=== PATIENT | male | born 1980 | race Caucasian/White ===

== ENCOUNTER 2020-08-21 20:45 | Emergency (ER) | payer BC ==
[~2020-08-21] VITALS: Ht 172.7 cm; Wt 94.8 kg
--- NOTE | 2020-08-21 20:47 | NUR ---
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 PT HAS HX ASTHMA, ATTEMPTED TO USE ALBUTEROL AT HOME AND REC'D BREATHING TREATMENT EN ROUTE, NO RELIEF. O2 SAT 87% ROOM AIR. PT STATES HE REC'D SECOND COVID VACCINE YESTERDAY, DENIES FEVER. PT AAOX4. BILATERAL WHEEZING NOTED. 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
--- NOTE | 2020-08-21 20:50 | NUR ---
RT AT BEDSIDE
--- NOTE | 2020-08-21 20:50 | NUR ---
AT BEDSIDE FOR EVAL
[2020-08-21] MEDS ORDERED: IPRATROPIUM NEB FS 0.5 MG/2.5 ML AMPUL.NEB ONE (20:52)
[2020-08-21] MEDS ORDERED: ALBUTEROL FS 2.5 MG/3 ML VIAL.NEB ONE ×2 (20:52→22:09)
--- NOTE | 2020-08-21 20:59 | NUR ---
RADIOLOGY AT BEDSIDE FOR CXR
[2020-08-21] MEDS ORDERED: IPRATROPIUM NEB FS 0.5 MG/2.5 ML AMPUL.NEB NEB ONE (21:00)
[2020-08-21] MEDS ORDERED: methylPREDNISolone SOD SUCC 125 MG/2ML VIAL IV ONE (21:00)
[2020-08-21] MEDS ORDERED: IV NS 0.9% 1,000 ML IV ONE (21:00)
[2020-08-21] MEDS ORDERED: methylPREDNISolone SOD SUCC 125 MG/2ML VIAL ONE (21:00)
[2020-08-21] MEDS ORDERED: ALBUTEROL FS 2.5 MG/3 ML VIAL.NEB NEB ONE (21:00)
[2020-08-21] MEDS ORDERED: Magnesium 1GM/D5W 100ML PREMIX 200 ML IV ONE ×2 (21:00→21:01)
[2020-08-21] MEDS ORDERED: ALBUTEROL FS 2.5 MG/3 ML VIAL.NEB CONTNEB ONE (22:30)
[2020-08-21] MEDS ORDERED: PRED20TA PO (22:56)
--- NOTE | 2020-08-21 23:30 | NUR ---
DR. VIGIL AT BEDSIDE REGARDING PLAN OF CARE. PT OFFERED ADMISSION D/T O2 SAT 93% ROOM AIR, PT REFUSED. PT MEDICALLY CLEARED FOR DISCHARGE AT THIS TIME
--- NOTE | 2020-08-21 23:43 | NUR ---
Patient discharged to home in stable condition. Written and verbal after care instructions given. Patient verbalizes understanding of instruction.IV removed. Catheter intact and site benign. Pressure and 4x4 applied to site. No bleeding noted.Pt ambulatory with a steady gait
[2020-08-21 23:44] VITALS: BP 156/88
== END 2020-08-21 23:44 | disposition home or self-care (01) ==
LOC: ER 20:45
DX: J45.901 Unspecified asthma with (acute) exacerbation (principal); R00.0 Tachycardia, unspecified; F17.210 Nicotine dependence, cigarettes, uncomplicated; Z60.2 Problems related to living alone
CPT/HCPCS: 71045; 94644; 94645; 96365; 96375; 99285; 99406; J2930; J3475; J7030